=== PATIENT | female | born 1955 | race Caucasian/White ===

== ENCOUNTER 2020-10-26 11:58 | Inpatient (IN) ==
[2020-10-26] MEDS ORDERED: IBUPROFEN 200 MG TAB PO STA (13:28)
[2020-10-26] MEDS ORDERED: oxyCODONE/ACETAMINOPHEN 5mg/325mg TAB PO STA (13:28)
--- NOTE | 2020-10-26 13:40 | Emergency Department Note ---
History of Present Illness General Chief complaint: Back Injury/Pain Stated complaint: NERVE PAIN IN LEG Time Seen by Provider: 10/26/20 13:00 History of Present Illness Maximum Pain Intensity: 10 This patient is a 65-year-old female who presents ambulatory to the emergency department for evaluation of low back pain radiating down her right leg that has gotten progressively worse over the last 6 months. She denies any trauma the pain is sharp, shooting, stabbing in nature. She has tried Tylenol, Aleve, ibuprofen and topical creams with no relief. 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 She denies any numbness or tingling. No reported urinary/bowel incontinence. The patient saw her primary care physician earlier this week. She was prescribed Flexeril, which she has been taking with no relief. Home Medications Medication Instructions Recorded Confirmed Type acetaminophen 650 mg 1,300 mg PO Q12H PRN 10/26/20 10/26/20 History tablet,extended release cyclobenzaprine 10 mg tablet 10 mg PO BID 10/26/20 10/26/20 History ibuprofen 125 mg-acetaminophen 250 1 tab PO TID PRN 10/26/20 10/26/20 History mg tablet (Advil Dual Action) naproxen sodium 220 mg tablet 220 mg PO Q12H PRN 10/26/20 10/26/20 History (Aleve) Allergies Allergy/AdvReac Type Severity Reaction Status Date / Time Penicillins AdvReac Mild Rash Unverified 10/26/20 17:10 Past Med/Surg History Social History Smoking Status: Never smoker Preferred Language: Kinyarwanda Feels Safe at Home: Yes Review of Systems A total of 10 systems reviewed and were otherwise negative Physical Exam Vital Signs Vital Signs - 24 hr 10/26/20 12:10 10/26/20 13:40 10/26/20 15:30 Temperature 36.8 C Temperature Source Temporal Artery Scan Pulse Rate 96 H Pulse Rate [Left Finger] 90 85 Pulse Rhythm [Left Finger] Pulse Strength [Left Finger] Respiratory Rate 16 20 22 Respiratory Effort / Characteristics Respiratory Depth Respiratory Pattern Blood Pressure 103/69 Blood Pressure [Left Arm] 110/70 101/70 Blood Pressure Mean 80 Blood Pressure Mean [Left Arm] 83 80 Blood Pressure Position [Left Arm] Pulse Oximetry 96 98 98 Oxygen Delivery Method Room Air Sepsis Recent Fever Within 48 Hours No Sepsis New/Unexplained Change in Mental Status No Sepsis Action Taken by Nursing No Action Required 10/26/20 17:18 10/26/20 18:13 Temperature Temperature Source Pulse Rate Pulse Rate [Left Finger] 85 73 Pulse Rhythm [Left Finger] Regular Pulse Strength [Left Finger] Normal Respiratory Rate 20 20 Respiratory Effort / Characteristics Non-Labored Spontaneous Respiratory Depth Normal Respiratory Pattern Regular Blood Pressure Blood Pressure [Left Arm] 107/72 133/62 Blood Pressure Mean Blood Pressure Mean [Left Arm] 83 85 Blood Pressure Position [Left Arm] Sitting Sitting Pulse Oximetry 99 98 Oxygen Delivery Method Room Air Sepsis Recent Fever Within 48 Hours Sepsis New/Unexplained Change in Mental Status Sepsis Action Taken by Nursing see below Constitutional WD/WN, vitals as above Eyes EOM intact bilaterally ENMT external ear and nose normal, oropharynx normal Neck trachea midline Respiratory normal respiratory effort, lungs clear to auscultation Cardiovascular RRR, no murmur, no edema Gastrointestinal (Abdomen) Bowel sounds present Musculoskeletal Tenderness palpation over the right SI joint. Bilateral foot drop. Sensation in the lower extremities intact bilaterally. No tenderness over the spinous processes. Skin no rashes, warm and dry Neurologic Alert and oriented x3. No focal motor deficits. Psychiatric Acting appropriately Course Course Patient was seen and examined. She was ordered pain medication. MRI was ordered and reviewed. Upon reevaluation, the patient was still in significant pain. She was ordered morphine 2 mg IV. We discussed her results. She voiced understanding. We discussed disposition options. At this point, she and her did not feel comfortable to be discharged home as she is having a significantly difficult time getting around. Her pain was moderately controlled with the dose of morphine. I discussed the case with the [facility] who kindly agreed to evaluate the patient for likely inpatient management. She remained stable in the emergency department. Consultations Consultation #1: Dr. Balbuena Administered Medications Discontinued Medications Ibuprofen (Ibuprofen 200 Mg Tab) 400 mg PO NOW STA Stop: 10/26/20 13:29 Last Admin: 10/26/20 13:39 Dose: 400 mg Documented by: [id number] Morphine Sulfate (Morphine Sulfate 2 Mg/Ml Carp) 2 mg IV NOW STA Stop: 10/26/20 17:03 Last Admin: 10/26/20 17:15 Dose: 2 mg Documented by: [id number] Oxycodone/Acetaminophen (Oxycodone/Acetaminophen 5mg/325mg Tab) 1 tab PO NOW STA Stop: 10/26/20 13:29 Last Admin: 10/26/20 13:39 Dose: 1 tab Documented by: [id number] Medical Decision Making Medical Records Attestation: I reviewed the patient's medical records. Home Medications Current Medication List: was personally reviewed by me Laboratory Data Result diagrams: 10/26/20 17:16 10/26/20 17:16 Lab Results 10/26/20 10/26/20 10/26/20 Range/Units 17:16 17:16 17:16 WBC 7.07 (4.8-10.8) K/uL RBC 4.33 (4.2-5.4) M/uL Hgb 13.8 (12.0-16.0) g/dL Hct 41.1 (37-47) % MCV 94.9 (80-100) fL MCH 31.9 (25-34) pg MCHC 33.6 (32-36) g/dL RDW Std Deviation 45.2 (36.4-46.3) fL RDW Coeff of Faiza 13.0 (11.5-14.5) % Plt Count 279 (130-400) K/uL MPV 9.4 (7.4-10.4) fL Immature Gran % (Auto) 0.1 % Neut % (Auto) 60.6 % Lymph % (Auto) 29.1 % Braxton % (Auto) 8.2 % Eos % (Auto) 1.4 % Baso % (Auto) 0.6 % Neut # (Auto) 4.28 (1.4-6.5) K/uL Lymph # (Auto) 2.06 (1.2-3.4) K/uL Braxton # (Auto) 0.58 (0.11-0.59) K/uL Eos # (Auto) 0.10 (0-0.5) K/uL Baso # (Auto) 0.04 (0-0.2) K/uL Immature Gran # (Auto) 0.01 (0.00-0.02) K/uL PT 10.5 (9.0-12.0) Seconds INR 1.0 (0.9-1.1) Sodium 141 (136-145) mmol/L Potassium 3.5 (3.5-5.1) mmol/L Chloride 110 H (98-107) mmol/L Carbon Dioxide 22 (21-32) mmol/L Anion Gap 9.0 (3-11) BUN 16 (7-18) mg/dl Creatinine 0.78 (0.6-1.2) mg/dl Est Cr Clr Drug Dosing Not Reportable Est GFR ( Amer) 93.8 ml/min Est GFR (Non-Af Amer) 80.9 ml/min BUN/Creatinine Ratio 21.0 H (10-20) Glucose 68 L (70-99) mg/dl Calcium 9.9 (8.5-10.1) mg/dl Total Bilirubin 0.9 (0.2-1) mg/dl AST 15 (15-37) U/L ALT 23 (12-78) U/L Alkaline Phosphatase 45 (45-117) U/L Total Protein 7.3 (6.4-8.2) gm/dl Albumin 4.5 (3.4-5.0) gm/dl Globulin 2.8 (2.5-4.0) gm/dl Albumin/Globulin Ratio 1.6 (0.9-2) Imaging Data Attestation: I personally reviewed and interpreted this imaging study as follows: Radiologist's Impression: Lumbar Spine MRI 10/26/20 13:28 LUMBAR SPINE MRI HISTORY: severe low back pain down R leg TECHNIQUE: Multiplanar multisequence MRI of the lumbar spine was performed without the use of contrast. COMPARISON: None. FINDINGS: For the purpose of the report the L5-S1 disc space will be located on axial image 23 of 25. Mild motion artifact. Mild dextroscoliosis. Moderate disc space narrowing at L1- L2 and L5-S1. Mild disc space narrowing at L2-L3, L3-L4, and L4-5. Prpt-qy-qkovfisz facet degenerative changes seen throughout the lumbar spine. No fracture or subluxation. The conus terminates at the L1 level. L1-L2: Broad-based posterior disc bulge with a small focal central disc protrusion. No significant central canal narrowing. There is mild to moderate b ilateral neural foraminal narrowing due to the disc bulge and facet hypertrophy. L2-L3: Broad-based posterior disc bulge asymmetric to the left with ligamentum and facet hypertrophy resulting in mild central canal narrowing. There is also moderate right and severe left neural foraminal narrowing L3-L4: Broad-based posterior disc bulge with ligamentum and facet hypertrophy resulting in mild central canal narrowing. No significant neural foraminal narrowing. L4-L5: Broad-based posterior disc bulge with a right paracentral disc extrusion demonstrating inferior subligamentous migration. This measures 13 x 9 x 9 mm and compresses the transiting right L5 nerve root. There is moderate bilateral neural foraminal narrowing due to the disc bulge. There is mild to moderate central canal narrowing. L5-S1: Small broad-based posterior disc bulge without significant central canal narrowing. There is mild to moderate bilateral neural foraminal narrowing due to the disc bulge and facet hypertrophy. IMPRESSION: 1. A 13 x 9 x 9 mm right paracentral disc extrusion at L4-L5 which compresses the transiting right L5 nerve root. 2. Additional degenerative changes as described above within the lumbar spine resulting in central canal and neural foraminal narrowing. 3. No fracture or subluxation. 4. Mild dextroscoliosis. ACT 112: Negative or not required by law. Electronically signed by: Wild Anderson M.D. 10/26/2020 3:44 PM MDM Narrative Differential diagnosis: Radiculopathy, no sciatica, spine fracture, ligamentous injury, subluxation, spondylolisthesis, spondylosis, herniated disc, contusion, muscle spasm, infectious etiology, among others This patient is a 65-year-old female that presents emergency department complaining of severe back pain down the right leg. She has been dealing with this for quite some time. On exam, her vital signs are stable. I do not suspect an infectious etiology. The patient has bilateral foot drop but at baseline secondary to CMT. She was neurologically at her baseline. Due to the amount of discomfort and symptoms, an MRI was ordered. This shows a severe disc bulge at L4-L5, which is consistent with her path of pain. As I did not feel comfortable sending the patient home due to her baseline difficulties ambulating, it was felt that hospitalist consultation was warranted. She also did not have any relief with p.o. pain medication. They agreed to evaluate the patient for likely inpatient management. Impression & Plan Lumbar radiculopathy, Bulging disc Discharge Plan Visit Data Chief Complaint: Back Injury/Pain Stated Complaint: NERVE PAIN IN LEG ED Provider: Cony Ivory ED Midlevel Provider: Obdulia Leach Discharge Problem: Lumbar radiculopathy, Bulging disc Patient Disposition: Being Evaluated by Hospitalist Forms Stand Alone Forms: [facility] Prescriptions Prescriptions: No Action cyclobenzaprine 10 mg tablet 10 mg PO BID RF: 0 acetaminophen [Tylenol Extended Release] 650 mg Tablet Extended Release 1,300 mg PO Q12H PRN (Reason: Pain) RF: 0 naproxen sodium [Aleve] 220 mg Tablet 220 mg PO Q12H PRN (Reason: Pain) RF: 0 Advil Dual Action 125-250 mg Tablet 1 tab PO TID PRN (Reason: Pain) RF: 0 Referrals Referrals: Jonathan Majano MD [Primary Care Provider] -
--- NOTE | 2020-10-26 15:46 | Magnetic Resonance Report ---
LUMBAR SPINE MRI HISTORY: severe low back pain down R leg TECHNIQUE: Multiplanar multisequence MRI of the lumbar spine was performed without the use of contras t. COMPARISON: None. FINDINGS: For the purpose of the report the L5-S1 disc space will be located on axial image 23 of 25. Mild motion artifact. Mild dextroscoliosis. Moderate disc space narrowing at L1-L2 and L5-S1. Mild di sc space narrowing at L2-L3, L3-L4, and L4-5. Mohi-tz-jpzocfpk facet degenerative changes seen throug hout the lumbar spine. No fracture or subluxation. The conus terminates at the L1 level. L1-L2: Broad-based posterior disc bulge with a small focal central disc protrusion. No significant ce ntral canal narrowing. There is mild to moderate bilateral neural foraminal narrowing due to the disc bulge and facet hypertrophy. L2-L3: Broad-based posterior disc bulge asymmetric to the left with ligamentum and facet hypertrophy resulting in mild central canal narrowing. There is also moderate right and severe left neural forami nal narrowing L3-L4: Broad-based posterior disc bulge with ligamentum and facet hypertrophy resulting in mild centr al canal narrowing. No significant neural foraminal narrowing. L4-L5: Broad-based posterior disc bulge with a right paracentral disc extrusion demonstrating inferio r subligamentous migration. This measures 13 x 9 x 9 mm and compresses the transiting right L5 nerve root. There is moderate bilateral neural foraminal narrowing due to the disc bulge. There is mild to moderate central canal narrowing. L5-S1: Small broad-based posterior disc bulge without significant central canal narrowing. There is m ild to moderate bilateral neural foraminal narrowing due to the disc bulge and facet hypertrophy. IMPRESSION: 1. A 13 x 9 x 9 mm right paracentral disc extrusion at L4-L5 which compresses the transiting right L5 nerve root. 2. Additional degenerative changes as described above within the lumbar spine resulting in central ca nal and neural foraminal narrowing. 3. No fracture or subluxation. 4. Mild dextroscoliosis. ACT 112: Negative or not required by law. Electronically signed by: Wild Anderson M.D. 10/26/2020 3:44 PM
[2020-10-26] MEDS ORDERED: MoRPHine SULFATE 2 MG/ML CARP IV STA (17:02)
[2020-10-26 17:27] LABS: Basophils # (auto) 0.04 K/uL (0-0.2); Basophils % (auto) 0.6 %; Eosinophils % (auto) 1.4 %; Hematocrit (blood only) 41.1 % (37-47); Hemoglobin 13.8 g/dL (12.0-16.0); Immature Granulocytes # (auto) 0.01 K/uL (0.00-0.02); Immature Granulocytes % (auto) 0.1 %; Lymphocytes # (auto) 2.06 K/uL (1.2-3.4); Lymphocytes % (auto) 29.1 %; Mean Corpuscular Hemoglobin 31.9 pg (25-34); Mean Corpuscular Hgb Conc 33.6 g/dL (32-36); Mean Corpuscular Volume 94.9 fL (80-100); Mean Platelet Volume 9.4 fL (7.4-10.4); Monocytes # (auto) 0.58 K/uL (0.11-0.59); Monocytes % (auto) 8.2 %; Neutrophils # (auto) 4.28 K/uL (1.4-6.5); Neutrophils % (auto) 60.6 %; Platelet Count 279 K/uL (130-400); RDW Standard Deviation 45.2 fL (36.4-46.3); Red Blood Count 4.33 M/uL (4.2-5.4); White Blood Count 7.07 K/uL (4.8-10.8)
[2020-10-26 17:44] LABS: Alanine Aminotransferase 23 U/L (12-78); Albumin Level 4.5 gm/dl (3.4-5.0); Aspartate Aminotransferase 15 U/L (15-37); Blood Urea Nitrogen 16 mg/dl (7-18); Calcium 9.9 mg/dl (8.5-10.1); Carbon Dioxide 22 mmol/L (21-32); Chloride 110 mmol/L (98-107); Est GFR (African American) 93.8 ml/min; Est GFR (Non-African American) 80.9 ml/min; Glucose 68 mg/dl (70-99); Potassium 3.5 mmol/L (3.5-5.1); Sodium 141 mmol/L (136-145)
[2020-10-26 17:47] LABS: Albumin Globulin Ratio 1.6 (0.9-2); Alkaline Phosphatase 45 U/L (45-117); Bilirubin,Total 0.9 mg/dl (0.2-1); Globulin 2.8 gm/dl (2.5-4.0); Total Protein 7.3 gm/dl (6.4-8.2)
[2020-10-26 17:59] LABS: Prothrombin Time 10.5 Seconds (9.0-12.0)
[2020-10-26] MEDS ORDERED: ACETAMINOPHEN 325 MG TAB PO PRN (20:11)
[2020-10-26] MEDS ORDERED: IBUPROFEN 200 MG TAB PO PRN (20:11)
[2020-10-26] MEDS: LIDOCAINE 5% 1 PATCH TD SCH (20:41)
--- NOTE | 2020-10-26 20:51 | History & Physical Report ---
Date of Service October 26, 2020 Assessment & Plan (1) Lumbar radiculopathy: (2) Charcot Nichelle Tooth muscular atrophy: Plan: Please refer to Dr. Stewart's addendum for physical exam. History of Present Illness Chief Complaint: Right hip pain Primary Care Provider: Jonathan Majano MD 65-year-old female with PMH Ymkswnl-Ynbld-[id number] and other problems listed below who presents the ED for evaluation of right hip pain. Patient reports right hip pain initially started about a year and a half ago. Reports pain radiates down the back of the right leg. Pain has been progressively getting worse. Initially patient was able to obtain pain control with Tylenol, Motrin, Aleve, or pain relief patches. Currently bbyt-bwf-ybmsbgj therapies are not improving her pain. She has been seen PT for the past couple of weeks with minimal improvement. Patient then presented to the ED for further evaluation. Patient has chronic bilateral foot drop from underlying Mnndwwk-Agpnv-Hrluz. Denies right leg weakness. Also has chronic neuropathy which is unchanged from baseline. Patient denies loss of bowel or bladder control. Reports she otherwise has been feeling well recently. No other recent illnesses, fevers, chills. She denies chest pain shortness of breath. No lightheadedness, dizziness, diaphoresis, syncopal events. Denies abdominal pain, nausea, vomiting, diarrhea. No new urinary symptoms. In the ED, lumbar spine MRI shows a 13 x 9 x 9 mm right paracentral disc extrusion at L4-L5 which compresses the transiting right L5 nerve root. Patient received ibuprofen, IV morphine 2 mg, Percocet. She continues to have intractable pain. Allergies Allergy/AdvReac Type Severity Reaction Status Date / Time Penicillins AdvReac Mild Rash Unverified 10/26/20 17:10 Home Medications Medication Instructions Recorded Confirmed Type acetaminophen 650 mg 1,300 mg PO Q12H PRN 10/26/20 10/26/20 History tablet,extended release cyclobenzaprine 10 mg tablet 10 mg PO BID 10/26/20 10/26/20 History ibuprofen 125 mg-acetaminophen 250 1 tab PO TID PRN 10/26/20 10/26/20 History mg tablet (Advil Dual Action) naproxen sodium 220 mg tablet 220 mg PO Q12H PRN 10/26/20 10/26/20 History ([place]) Past Med/Surg History Medical History Charcot Nichelle Tooth muscular atrophy Surgical History History of History of tonsillectomy Family History Father Charcot Nichelle Tooth muscular atrophy Social History Smoking Status: Former smoker Hx Alcohol Use: No Preferred Language: Wolof Feels Safe at Home: Yes Review of Systems Review of Systems: ROS per HPI, all other systems reviewed and negative Physical Exam Constitutional: WD/WN, vitals as above Eyes: PERRL, conjunctivae normal, anicteric sclerae ENMT: external ear and nose normal, oropharynx normal Respiratory: normal respiratory effort, lungs clear to auscultation Cardiovascular: Rate/Rhythm: regular rate and regular rhythm Vessels: normal peripheral pulses Extremities: no edema Gastrointestinal (Abdomen): normal bowel sounds, soft, nontender, no hepatosplenomegaly Musculoskeletal: no cyanosis or clubbing, extremities motor strength 5/5 Extremities: + muscle atrophy (BL calf msucles) BL foot drop Skin: no rashes, warm and dry Neurologic: PERRL, EOMI, accommodation nl, no face palsy, no dysarthria Psychiatric: A+Ox3, euthymic affect Results & Data Results & Data ([facility]) Vital Signs (Past 12 Hours) Vital Signs Temp Pulse Pulse Resp BP BP Pulse Ox 10/26/20 18:13 73 20 133/62 98 10/26/20 17:18 85 20 107/72 99 10/26/20 15:30 85 22 101/70 98 10/26/20 13:40 90 20 110/70 98 10/26/20 12:10 36.8 C 96 H 16 103/69 96 Laboratory Results Short CBC 10/26/20 Range/Units 17:16 WBC 7.07 (4.8-10.8) K/uL Hgb 13.8 (12.0-16.0) g/dL Hct 41.1 (37-47) % Plt Count 279 (130-400) K/uL BMP 10/26/20 17:16 Sodium 141 Potassium 3.5 Chloride 110 H Carbon Dioxide 22 BUN 16 Creatinine 0.78 Glucose 68 L Calcium 9.9 Liver Function 10/26/20 Range/Units 17:16 Total Bilirubin 0.9 (0.2-1) mg/dl AST 15 (15-37) U/L ALT 23 (12-78) U/L Alkaline Phosphatase 45 (45-117) U/L Albumin 4.5 (3.4-5.0) gm/dl Diagnostic Findings Lumbar Spine MRI 10/26/20 13:28 LUMBAR SPINE MRI HISTORY: severe low back pain down R leg TECHNIQUE: Multiplanar multisequence MRI of the lumbar spine was performed without the use of contrast. COMPARISON: None. FINDINGS: For the purpose of the report the L5-S1 disc space will be located on axial image of . Mild motion artifact. Mild dextroscoliosis. Moderate disc space narrowing at L1- L2 and L5-S1. Mild disc space narrowing at L2-L3, L3-L4, and L4-5. Exvj-cu-nrpuqxmk facet degenerative changes seen throughout the lumbar spine. No fracture or subluxation. The conus terminates at the L1 level. L1-L2: Broad-based posterior disc bulge with a small focal central disc protrusion. No significant central canal narrowing. There is mild to moderate bilateral neural foraminal narrowing due to the disc bulge and facet hypertrophy. L2-L3: Broad-based posterior disc bulge asymmetric to the left with ligamentum and facet hypertrophy resulting in mild central canal narrowing. There is also moderate right and severe left neural foraminal narrowing L3-L4: Broad-based posterior disc bulge with ligamentum and facet hypertrophy resulting in mild central canal narrowing. No significant neural foraminal narrowing. L4-L5: Broad-based posterior disc bulge with a right paracentral disc extrusion demonstrating inferior subligamentous migration. This measures 13 x 9 x 9 mm and compresses the transiting right L5 nerve root. There is moderate bilateral neural foraminal narrowing due to the disc bulge. There is mild to moderate central canal narrowing. L5-S1: Small broad-based posterior disc bulge without significant central canal narrowing. There is mild to moderate bilateral neural foraminal narrowing due to the disc bulge and facet hypertrophy. IMPRESSION: 1. A 13 x 9 x 9 mm right paracentral disc extrusion at L4-L5 which compresses the transiting right L5 nerve root. 2. Additional degenerative changes as described above within the lumbar spine resulting in central canal and neural foraminal narrowing. 3. No fracture or subluxation. 4. Mild dextroscoliosis. ACT 112: Negative or not required by law. Electronically signed by: Wild Anderson M.D. 10/26/2020 3:44 PM Supervising Physician Co-Signing Physician Notes IM ATTENDING : Patient seen and examined. History obtained from patient and records. Preceding documentation by DOLORES Stein reviewed. FINAL ASSESSMENT AND PLAN as follows : Worsening back pain with radiculopathy symptoms Protracted 6-month history Sciatica symptoms possibly from gait instability from fractures of ankle foot orthoses for CMT as per outpatient Neurology note Failed medical management (including steroid course as per patient account) and PT Past tobacco abuse OBS GMF Lidoderm patch trial, analgesia Orthopedic spine consult Re: Lumbar radiculopathy of 6 months duration PT eval DVT prophylaxis SCDs Re: Possible procedural intervention Full code Text document was generated using [employer] voice recognition software. It may contain grammatical or spelling errors. Kindly contact undersigned for clarification of any documentation item in question.
[2020-10-26 21:12] LABS: Appearance Urine Clear (Clear); Bilirubin Urine Negative (Negative); Blood Urine Negative (Negative); Color Urine Yellow; Glucose Urine UA Negative (Negative); Ketones Urine 3+ (Negative); Leukocyte Esterase Urine Negative (Negative); Nitrite Urine Negative (Negative); Protein Urine Negative (Negative); Specific Gravity Urine 1.023 (1.000-1.030); Urobilinogen Urine Negative (Negative); pH Urine 5.5 (4.5-7.5)
[2020-10-26] MEDS ORDERED: LACTATED RINGER'S 1,000 ML IV ONE (21:52)
[2020-10-26] MEDS: KETOROLAC TROMETHAMINE 15 MG/ML VIAL IV PRN (22:01)
[2020-10-26 22:29] LABS: Magnesium 2.1 mg/dl (1.8-2.4)
[2020-10-27] MEDS ORDERED: PROMETHAZINE HCL 12.5 MG in SODIUM CHLORIDE 0.9% 50 ML IV PRN (00:53)
[2020-10-27] MEDS: KETOROLAC TROMETHAMINE 15 MG/ML VIAL IV PRN ×3 (07:57→20:16)
--- NOTE | 2020-10-27 11:08 | Orthopedic Consultation ---
Date of Consultation October 27, 2020 Assessment & Plan (1) Lumbar radiculopathy: MRI lumbar spine performed yesterday at [facility] does demonstrate evidence of multilevel degenerative disc disease with disc protrusions. She does have acute discrimination at L4-L5 on the right with caudal migration and significant displacement traversing L5 nerve root. This is consistent with her presentation and pain patterns. I have discussed with her treatment options. At this point she would be interested in surgery. Would require lumbar laminectomy L4-L5 on the right with excision of herniated free fragment. Risk benefits pros cons and alternatives were outlined in detail. Ri sk include but not limited to anesthesia blindness stroke paralysis nerve damage blood loss requiring transfusion infection requiring reoperation. At this time she would like pursue surgery. We will plan for surgery Thursday. History of Present Illness Reason for Consultation: Back and right leg pain Attending Physician: Randolph Adam MD History of Present Illness This is a very pleasant 65-year-old female who presents to the emergency room last night with marked worsening of her pain. She describes pain in the right buttock posterior lateral thigh extending below the knee and into the dorsum of her foot. She has had the symptoms for several months. She is undergone a course of oral steroids as well as 3 weeks of physical therapy that is failed to provide any significant relief. She states she had no recurrent relief from the steroids. Symptoms have not gotten the point that she is unable to ambulate without a cane. She states the pain is more severe and considerably limiting to her quality of life. Left lower extremity is asymptomatic. Allergies Allergy/AdvReac Type Severity Reaction Status Date / Time Penicillins AdvReac Mild Rash Unverified 10/26/20 17:10 Home Medications Medication Instructions Recorded Confirmed Type acetaminophen 650 mg 1,300 mg PO Q12H PRN 10/26/20 10/26/20 History tablet,extended release cyclobenzaprine 10 mg tablet 10 mg PO BID 10/26/20 10/26/20 History ibuprofen 125 mg-acetaminophen 250 1 tab PO TID PRN 10/26/20 10/26/20 History mg tablet (Advil Dual Action) naproxen sodium 220 mg tablet 220 mg PO Q12H PRN 10/26/20 10/26/20 History ([place]ve) Patient History Medical History Charcot Nichelle Tooth muscular atrophy Surgical History History of History of tonsillectomy Family History Father Charcot Nichelle Tooth muscular atrophy Social History Smoking Status: Former smoker Hx Alcohol Use: No Hx Substance Use: No Preferred Language: Barbadian Beliefs That Will Affect Care: None Current Living Situation: Spouse Other Information That Helps Us Care for You: No Feels Safe at Home: Yes Safety Concerns: Feels Safe At This Time Assistive Devices: Cane Physical Exam Physical Exam: On exam she is in bed. She is able to sit up. She exhibits marked tension signs with straight leg raising on the right negative on the left. Sensory appears to be symmetric and intact. She does have Exyckfy-Wjwti-Ylvzf and some weakness in her bilateral feet she states this is been present for years. She does exhibit weakness to bilateral dorsiflexion extensor pollicis longus with a 5/5 bilateral plantar flexion and quadriceps. Deep tendon reflexes diminished. Results & Data ([facility]) Vital Signs (Past 12 Hours) Vital Signs Temp Pulse Pulse Resp BP BP Pulse Ox 10/27/20 07:00 37.0 C 71 18 127/76 94 10/27/20 00:53 36.8 C 92 H 18 123/69 95 10/27/20 00:30 36.8 C 92 H 18 123/69 95 10/27/20 00:17 89 18 106/49 L 95
[2020-10-27] MEDS: oxyCODONE HCL IR 5 MG TAB (IMMEDIATE RELEASE) PO PRN (17:08)
--- NOTE | 2020-10-27 18:51 | Hospitalist Progress Note ---
Date of Service October 27, 2020 Assessment & Plan (1) Lumbar radiculopathy: (2) Hip pain, right: Plan: Present on admission with worsening right hip pain MRI showed a 13 x 9 x 9 mm right paracentral disc extrusion at L4-L5 which compresses the transiting right L5 nerve root. ortho on board Plan for lumbar laminectomy L4-L5 on the right with excision of herniated free fragment. Continue pain control Continue monitor closely Charcot Nichelle Tooth muscular atrophy Continue pain control DVT px on SCD Full code Admission and Anticipated Discharge Date Admission Date: October 26, 2020 Subjective Pt was seen and examined for follow up of right hip pain. Sitting in bed with no acute distress. said that pain seems to improve with Toradol Pt said that she would rather proceed with the surgery because she has been having problem for more than year and nothing provided any relief Denies any chest pain, palpitation, dizziness and SOB Physical Exam Physical Exam: General- No acute distress Head- atraumatic Eyes- PERRL, EOMI, ENT- oropharynx clear Neck- supple, no JVD Lungs- clear to auscultation Heart- regular rhythm; no murmur Abdomen- normal bowel sounds, soft, nontender Extremities- no calf tenderness, right sided hip tenderness Neuro- alert, oriented x 3; PERRL, EOMI; no facial palsy; no dysarthria Skin- warm & dry Results & Data Results & Data ([facility]) Vital Signs (Past 12 Hours) Vital Signs Temp Pulse Resp BP Pulse Ox 10/27/20 15:00 37.2 C 77 20 120/74 93 10/27/20 07:00 37.0 C 71 18 127/76 94
[2020-10-27] MEDS: LIDOCAINE 5% 1 PATCH TD SCH (20:17)
[2020-10-28] MEDS: KETOROLAC TROMETHAMINE 15 MG/ML VIAL IV PRN ×3 (02:22→18:24)
[2020-10-28] MEDS: HYDROmorphone INJ 0.5 MG/0.5 ML SYR IV PRN (09:09)
--- NOTE | 2020-10-28 11:03 | Orthopedic Progress Note ---
Date of Service October 28, 2020 Assessment & Plan (1) Lumbar radiculopathy: Plan: At this time will make her n.p.o. after midnight plan for lumbar laminotomy L4- L5 on the right. All questions were addressed. Admission and Anticipated Discharge Date Admission Date: October 26, 2020 Subjective This is a patient continues to have severe right radiculopathy. She is now trying IV Dilaudid and obtaining very little benefit. Physical Exam Physical Exam: Patient is in obvious distress. Continued tension signs straight leg raise on the right. Negative on the left. Still diminished strength bilateral extremities. Results & Data ([facility]) Vital Signs (Past 12 Hours) Vital Signs Temp Pulse Resp BP Pulse Ox 10/28/20 07:30 36.9 C 74 18 123/69 96
[2020-10-28] MEDS: oxyCODONE HCL IR 5 MG TAB (IMMEDIATE RELEASE) PO PRN ×3 (11:07→23:08)
[2020-10-28] MEDS ORDERED: HYDROmorphone INJ 1 MG/ML SYRINGE IV STA (12:44)
[2020-10-28] MEDS ORDERED: dexAMETHasone**PF** 10 MG/ML VIAL IV ONE (13:00)
[2020-10-28] MEDS ORDERED: dexAMETHasone 8 MG in SYRINGE 0 ML IV ONE (13:45)
--- NOTE | 2020-10-28 17:03 | Hospitalist Progress Note ---
Date of Service October 28, 2020 Assessment & Plan (1) Lumbar radiculopathy: (2) Hip pain, right: Plan: Present on admission with worsening right hip pain MRI showed a 13 x 9 x 9 mm right paracentral disc extrusion at L4-L5 which compresses the transiting right L5 nerve root. ortho on board Plan for lumbar laminectomy L4-L5 on the right with excision of herniated free fragment. Continue pain control with diluadid and toradol Will make NPO after midnight Continue monitor closely Charcot Nichelle Tooth muscular atrophy Continue pain control DVT px on SCD Full code Admission and Anticipated Discharge Date Admission Date: October 26, 2020 Subjective Pt was seen and examined for right hip pain Lying in bed crying with severe pain She said that she moves her leg the wrong way she said that the pain med only help for a short time denies any chest pain, palpitation, dizziness and SOB Physical Exam Physical Exam: General- No acute distress Head- atraumatic Eyes- PERRL, EOMI, ENT- oropharynx clear Neck- supple, no JVD Lungs- clear to auscultation Heart- regular rhythm; no murmur Abdomen- normal bowel sounds, soft, nontender Extremities- no calf tenderness, right sided hip tenderness Neuro- alert, oriented x 3; PERRL, EOMI; no facial palsy; no dysarthria Skin- warm & dry Results & Data Results & Data ([facility]) Vital Signs (Past 12 Hours) Vital Signs Temp Pulse Resp BP Pulse Ox 10/28/20 16:31 36.9 C 69 16 121/77 99 10/28/20 07:30 36.9 C 74 18 123/69 96
[2020-10-28] MEDS: LIDOCAINE 5% 1 PATCH TD SCH (20:23)
[2020-10-29] MEDS: KETOROLAC TROMETHAMINE 15 MG/ML VIAL IV PRN ×2 (05:36→11:26)
[2020-10-29] MEDS: HYDROmorphone INJ 0.5 MG/0.5 ML SYR IV PRN ×2 (07:04→11:56)
--- NOTE | 2020-10-29 10:05 | History & Physical Bridge Note ---
Date of Service October 29, 2020 History & Physical Bridge Note I have examined the patient, reviewed the History & Physical and in the interval since the performance of the History & Physical I have noted the following changes of clinical significance: no changes noted Patient has persistent right sided radiculopathy. Surgically we are planning to move forward with lumbar laminotomy L4-L5 on the right
[2020-10-29] MEDS: oxyCODONE HCL IR 5 MG TAB (IMMEDIATE RELEASE) PO PRN (10:30)
--- NOTE | 2020-10-29 12:41 | Electrocardiogram Report ---
Test Reason : Blood Pressure : / mmHG Vent. Rate : 092 BPM Atrial Rate : 092 BPM P-R Int : 132 ms QRS Dur : 084 ms QT Int : 366 ms P-R-T Axes : 086 050 054 degrees QTc Int : 452 ms Normal sinus rhythm Nonspecific ST abnormality Abnormal ECG No previous ECGs available Confirmed by Denis Becker ([id number]) on 10/29/2020 12:41:35 PM Referred By: REFERRED SELF Confirmed By:Denis Becker
[2020-10-29] MEDS ORDERED: EPINEPHrine INJ 1 MG/ML AMP ONE ×2 (14:42→15:31)
[2020-10-29] MEDS ORDERED: BUPIVACAINE 0.5 % 5 MG/1 ML MPF 30ML VIAL ONE ×2 (14:43→15:31)
[2020-10-29] MEDS ORDERED: fentaNYL citrate 100 MCG/2 ML VIAL ONE ×2 (14:52→15:57)
[2020-10-29] MEDS ORDERED: MIDAZOLAM HCL 1 MG/ML 2ML VIAL ONE (14:52)
[2020-10-29] MEDS ORDERED: GLYCOPYRROLATE 0.2 MG/ML VIAL ONE ×2 (14:52→17:35)
[2020-10-29] MEDS ORDERED: NEOSTIGMINE METHYLSULFATE 1 MG/ML 10ML VIAL ONE ×2 (14:52→17:35)
[2020-10-29] MEDS ORDERED: ceFAZolin 1000MG 1,000 MG/7.5 ML SYR IV ONE ×2 (15:05→16:31)
[2020-10-29] MEDS ORDERED: ONDANSETRON INJ 2 MG/ML 2 ML VIAL IV PRN ×2 (15:09→18:11)
[2020-10-29] MEDS ORDERED: ePHEDrine sulfate 50 MG/ML AMP IV PRN (15:09)
[2020-10-29] MEDS ORDERED: HYDROmorphone INJ 2 MG/ML SYR/VIAL IV PRN (15:09)
[2020-10-29] MEDS ORDERED: fentaNYL citrate 100 MCG/2 ML VIAL IV PRN (15:09)
[2020-10-29] MEDS ORDERED: ATROPINE SULFATE 0.1 MG/ML 10ML SYR IV PRN (15:09)
--- NOTE | 2020-10-29 15:09 | Anesthesiology Consultation ---
Date of Service October 29, 2020 Assessment & Plan ASA ASA3 Proposed Anesthesia Anesthesia Type: General Risk / Benefits Reviewed With: PT / POA / Parent / Guardian, Accepts Plan and Informed Consent Obtained History Surgery Operation Date: 10/29/20 08:50 Proposed Procedures p L4-5 Right Laminectomy - Ho Caldera DO Height/Weight Height: 5 ft 4 in Weight: 52.3 kg Allergies Allergy/AdvReac Type Severity Reaction Status Date / Time Penicillins AdvReac Mild Rash Unverified 10/26/20 17:10 Medications Home Medications Medication Instructions Recorded Confirmed Last Taken acetaminophen 650 mg 1,300 mg PO Q12H PRN 10/26/20 10/26/20 10/26/20 tablet,extended release cyclobenzaprine 10 mg tablet 10 mg PO BID 10/26/20 10/26/20 10/26/20 ibuprofen 125 mg-acetaminophen 250 1 tab PO TID PRN 10/26/20 10/26/20 Unknown mg tablet (Advil Dual Action) naproxen sodium 220 mg tablet 220 mg PO Q12H PRN 10/26/20 10/26/20 10/26/20 (Aleve) Active Medications Generic Name Dose Route Start Last Admin Trade Name Freq PRN Reason Stop Dose Admin Acetaminophen 650 mg 10/26/20 20:11 10/28/20 20:22 Acetaminophen 325 Mg Tab PO 11/25/20 20:10 650 mg Q6H PRN Administration Fever/pain Hydromorphone HCl 0.5 mg 10/28/20 08:51 10/29/20 11:56 Hydromorphone Inj 0.5 Mg/0.5 Ml Syr IV 11/11/20 08:50 0.5 mg Q4H PRN Administration Pain Ketorolac Tromethamine 15 mg 10/26/20 20:11 10/29/20 11:26 Ketorolac Tromethamine 15 Mg/Ml Vial IV 10/31/20 20:10 15 mg Q6H PRN Administration Pain Lidocaine 1 patch 10/26/20 20:00 10/28/20 20:23 Lidocaine 5% 1 Patch TD 11/25/20 19:59 1 patch HS DEE Administration Miscellaneous 1 ea 10/27/20 09:00 10/29/20 09:20 Remove Lidoderm Patch N/A 11/26/20 08:59 1 ea QAM DEE Administration Oxycodone HCl 5 - 10 mg 10/26/20 20:11 10/29/20 10:30 Oxycodone Hcl Ir 5 Mg Tab (Immediate Release) PO 11/09/20 20:10 10 mg QID PRN Administration Pain NPO Date Last Intake of Fluids: 10/29/20 Time Last Intake of Fluids: 10:30 Last Intake of Fluids Comment: per patient sips this am with meds Date Last Intake of Solids: 10/28/20 Time Last Intake of Solids: 17:30 Last Intake of Solids Comment: dinner Past Medical History Medical History Charcot Nichelle Tooth muscular atrophy Exercise / Class Metabolic Activity II 4-5 Yardwork/Stairs/Walk up hill Past Family History Family History Father Charcot Nichelle Tooth muscular atrophy Past Surgical History Surgical History History of History of tonsillectomy Past Anesthesia History No Hx of Anesthesia Complications and No Family Hx of Anesthesia Complications History of PONV No Hx of PONV and No Hx of Motion Sickness Social History Smoking Status: Former smoker Hx Alcohol Use: No Hx Substance Use: No Review of Systems denies fever/cough/ colds/ chest pain/ SOB/ ALMA denies ALMA Physical Exam Vital Signs Last Vital Signs Temp 36.7 C 10/29/20 14:24 Pulse 66 10/29/20 14:24 Resp 20 10/29/20 14:24 BP 125/66 10/29/20 14:24 Pulse Ox 99 10/29/20 14:24 ENMT Mouth: no TMJ abnormality and no dentition abnormality Thyromental Distance: > or= 3.5 Finger Breadths Mallampati Class: II Neck neck extension not limited Respiratory normal respiratory effort; no respiratory distress Auscultation: lungs clear to auscultation bilaterally Cardiovascular Rate/Rhythm: regular rate and regular rhythm Neurologic moves all extremities Psychiatric Orientation: alert and oriented x 3 Testing Laboratory Results 10/26/20 17:16 10/26/20 17:16 PT 10.5 Seconds (9.0-12.0) 10/26/20 17:16 INR 1.0 (0.9-1.1) 10/26/20 17:16 Urine Color Yellow 10/26/20 20:30 Urine Appearance Clear (Clear) 10/26/20 20:30 Urine pH 5.5 (4.5-7.5) 10/26/20 20:30 Ur Specific [place] 1.023 (1.000-1.030) 10/26/20 20:30 Urine Protein Negative (Negative) 10/26/20 20:30 Urine Glucose (UA) Negative (Negative) 10/26/20 20:30 Urine Ketones 3+ (Negative) H 10/26/20 20:30 Urine Nitrite Negative (Negative) 10/26/20 20:30 Ur Leukocyte Esterase Negative (Negative) 10/26/20 20:30
--- NOTE | 2020-10-29 17:10 | Operative Report ---
Post Operative Report Pre & Post Diagnosis Operation Date: 10/29/20 08:50 Pre-Op Diagnosis: L4-5 disc herniation with radiculopathy Post-Op Diagnosis: Same I identified the patient and participated in the time-out.: Yes Procedure Operation Date: 10/29/20 08:50 Actual Procedures Laminotomy L4-5 on the right with excision of herniated free fragment Surgeon Ho Caldera, DO Jailer/Training Officer None Estimated Blood Loss 25 Findings Consistent with Post-Op Diagnosis Specimens None Indications This is a 65-year-old female presents with severe radiculopathy expressive nature uncontrolled with physical therapy steroids and IV narcotics. Subsequently she is here for urgent laminotomy discectomy. Description of Procedure Patient was met with identified informed consent obtained. Patient was then taken to the operative suite underwent ablation placed in a prone position on a Torres table atop the Reji frame. All bony prominences well-padded eyes inspected to ensure no external pressure placed upon the bed at this point the lumbar spine was prepped and draped no sterile fashion. The assistance of fluoroscopy identified the L4-L5 disc base. A small incision was then placed in the midline overlying this region. Sharp dissection with the assistance of Bovie cautery performed down to expose the interlaminar space at L4-L5 on the right. Several 10 retractors placed. Then performed a small laminotomy excising the medial portion of the of the facet and part of the superior lamina of L5 to expose a severely compressed traversing L5 nerve root. Was mobilized medially and several loose fragments of disc material identified and removed. The area was explored several times to ensure all fragments were addressed root was very mobile. Incision was then copiously irrigated and closed with subcutaneous Vicryl and 4 Monocryl for final closure. Steri-Strip Steri-Strips placed. Patient will continue to PACU stable condition. I attest to the content of the Intraoperative Record and any orders documented therein. Any exceptions are noted below.
[2020-10-29] MEDS ORDERED: SUGAMMADEX SODIUM 200 MG/2 ML VIAL IV ONE (17:16)
--- NOTE | 2020-10-29 17:18 | Hospitalist Progress Note ---
Date of Service October 29, 2020 Assessment & Plan (1) Lumbar radiculopathy: (2) Hip pain, right: Plan: Present on admission with worsening right hip pain MRI showed a 13 x 9 x 9 mm right paracentral disc extrusion at L4-L5 which compresses the transiting right L5 nerve root. ortho on board S/P lumbar laminectomy L4-L5 on the right with excision of herniated free fragment by Dr. Caldera Continue pain control with diluadid and toradol Continue incentive spirometry PT/OT as per ortho Continue monitor closely Charcot Nichelle Tooth muscular atrophy Continue pain control DVT px on SCD Full code Admission and Anticipated Discharge Date Admission Date: October 29, 2020 Subjective Pt was seen and examined for right hip pain Lying in bed continue to have pain in the back She said that she moves her leg the wrong way Plan to go to the OR for laminectomy by Dr. Caldera today denies any chest pain, palpitation, dizziness and SOB Physical Exam Physical Exam: General- No acute distress Head- atraumatic Eyes- PERRL, EOMI, ENT- oropharynx clear Neck- supple, no JVD Lungs- clear to auscultation Heart- regular rhythm; no murmur Abdomen- normal bowel sounds, soft, nontender Extremities- no calf tenderness, right sided hip tenderness Neuro- alert, oriented x 3; PERRL, EOMI; no facial palsy; no dysarthria Skin- warm & dry Results & Data Results & Data ([facility]) Vital Signs (Past 12 Hours) Vital Signs Temp Pulse Resp BP BP Pulse Ox 10/29/20 14:24 36.7 C 66 20 125/66 99 10/29/20 06:58 36.3 C L 108 H 22 115/68 99
[2020-10-29] MEDS ORDERED: PROPOFOL IV EMULSION 10 MG/ML 20 ML VIAL IV ONE (17:35)
[2020-10-29] MEDS ORDERED: LIDOCAINE 2% 2 ML VIAL/AMP(20MG/ML) INFIL ONE (17:35)
[2020-10-29] MEDS ORDERED: DEXAMETHASONE SOD INJ 4 MG/ML VIAL ONE (17:35)
--- NOTE | 2020-10-29 18:06 | Anesthesiology Progress Note ---
Date of Service October 29, 2020 Anesthesia Post Procedure Vital Signs Vital Signs: Temp Pulse Pulse Resp BP BP Pulse Ox 10/29/20 18:00 36.4 C L 75 13 104/43 L 98 10/29/20 17:50 62 13 101/51 L 99 10/29/20 17:40 63 12 88/48 L 100 10/29/20 17:30 67 11 L 107/46 L 100 10/29/20 17:23 36.3 C L 80 16 124/51 L 100 10/29/20 14:24 36.7 C 66 20 125/66 99 10/29/20 06:58 36.3 C L 108 H 22 115/68 99 10/28/20 23:04 36.5 C 68 12 119/68 94 Pain Intensity Back: Pain Intensity: 10 Transfer of Care Handoff Completed per policy Notes Mental Status: alert / awake / arousable and participated in evaluation Patient Amnestic to Procedure: Yes Nausea / Vomiting: adequately controlled Pain: adequately controlled Airway Patency, RR, SpO2: stable & adequate BP & HR: stable & adequate Hydration State: stable & adequate Anesthetic Complications: no major complications apparent and Pt Satisfied with anesthetic care
[2020-10-29] MEDS ORDERED: ACETAMINOPHEN 1,000 MG/100 ML VIAL IV PRN (18:11)
[2020-10-29] MEDS ORDERED: HYDROmorphone INJ 1 MG/ML SYRINGE IV PRN (18:11)
[2020-10-29] MEDS ORDERED: LORazepam 0.5 MG/1 ML VIAL IV PRN (18:11)
[2020-10-29] MEDS ORDERED: bisacodyL 10 MG SUPP PR PRN (18:11)
[2020-10-29] MEDS ORDERED: diphenhydrAMINE Capsule 25 MG CAP PO PRN (18:11)
[2020-10-29] MEDS ORDERED: PROMETHAZINE HCL 12.5 MG in SODIUM CHLORIDE 0.9% 50 ML IV PRN (18:11)
[2020-10-29] MEDS ORDERED: hydrOXYzine HCl 25 MG TAB PO PRN (18:11)
[2020-10-29] MEDS ORDERED: SOD PHOSPHATE/SOD BIPHOSPHATE ENEMA 132 ML BTL PR PRN (18:11)
[2020-10-29] MEDS ORDERED: NALOXONE HCL 0.4 MG/1 ML VIAL/CARP IV PRN (18:11)
[2020-10-29] MEDS ORDERED: LORazepam 0.5 MG TAB PO PRN (18:11)
[2020-10-29] MEDS ORDERED: LACTATED RINGER'S 1,000 ML IV SCH (18:11)
[2020-10-29] MEDS ORDERED: MAGNESIUM HYDROXIDE SUSP 30 ML UDC PO PRN (18:11)
[2020-10-29] MEDS ORDERED: ONDANSETRON 4 MG OD TAB PO PRN (18:11)
[2020-10-29] MEDS ORDERED: ALUMINUM/MAGNESIUM SUSP 30 ML UDC PO PRN (18:11)
[2020-10-29] MEDS ORDERED: DO NOT ADMINISTER FLU VACCINE PRN (18:11)
[2020-10-29] MEDS ORDERED: oxyCODONE HCL IR 5 MG TAB (IMMEDIATE RELEASE) PO PRN (18:11)
[2020-10-29] MEDS ORDERED: HYDROmorphone INJ 0.5 MG/0.5 ML SYR IV PRN (18:11)
[2020-10-29] MEDS ORDERED: FAMOTIDINE 20 MG TAB PO PRN (18:11)
[2020-10-29] MEDS ORDERED: traMADol HCL 50 MG TABLET PO PRN (18:11)
[2020-10-29] MEDS ORDERED: METOCLOPRAMIDE HCL INJ 5 MG/ML 2 ML VIAL IV PRN (18:11)
[2020-10-29] MEDS ORDERED: DO NOT ADMINISTER PNEUMOCOCCAL VACCINE PRN (18:11)
--- NOTE | 2020-10-29 18:44 | Fluoroscopy Report ---
FL spine 1V any level CLINICAL HISTORY: L4-5 LAMINECTOMY COMPARISON STUDY: None. FLUOROSCOPY TIME: 7 seconds. FINDINGS: Single fluoroscopic spot image of the lower lumbar spine demonstrate surgical measurements posterior to the L4-5 disc space. IMPRESSION: Fluoroscopy provided for L4-5 laminectomy. ACT 112: Negative or not required by law. Electronically signed by: Wild Anderson M.D. 10/29/2020 6:42 PM
[2020-10-29] MEDS: LIDOCAINE 5% 1 PATCH TD SCH (20:14)
[2020-10-29] MEDS ORDERED: DOCUSATE SODIUM/SENNA 50/8.6MG TAB PO SCH (21:00)
[2020-10-29] MEDS: ceFAZolin 1000MG 1,000 MG/7.5 ML SYR IV SCH (22:56)
[2020-10-30] MEDS: POLYETHYLENE (MIRALAX) 17 GM PACK PO SCH ×2 (05:36→11:56)
[2020-10-30] MEDS: ACETAMINOPHEN 500 MG TAB PO PRN ×2 (05:38→13:15)
[2020-10-30 06:56] LABS: Hematocrit (blood only) 37.2 % (37-47); Mean Corpuscular Hemoglobin 31.2 pg (25-34); Mean Corpuscular Hgb Conc 32.3 g/dL (32-36); Mean Corpuscular Volume 96.6 fL (80-100); Mean Platelet Volume 9.6 fL (7.4-10.4); Platelet Count 269 K/uL (130-400); RDW Coefficient of Variation 13.1 % (11.5-14.5); RDW Standard Deviation 45.5 fL (36.4-46.3); Red Blood Count 3.85 M/uL (4.2-5.4); White Blood Count 12.08 K/uL (4.8-10.8)
[2020-10-30] MEDS: ceFAZolin 1000MG 1,000 MG/7.5 ML SYR IV SCH (08:09)
--- NOTE | 2020-10-30 08:20 | Orthopedic Progress Note ---
Date of Service October 30, 2020 Assessment & Plan (1) Lumbar radiculopathy: Plan: At this time she we will have her up and ambulating. She is okay for discharge from orthopedic standpoint. Admission and Anticipated Discharge Date Admission Date: October 29, 2020 Subjective Back pain controlled leg pain markedly improved Physical Exam Physical Exam: On exam patient appears much more comfortable. She does have persistent bilateral foot drop but no tension signs. Results & Data ([facility]) Vital Signs (Past 12 Hours) Vital Signs Temp Pulse Pulse Resp BP BP Pulse Ox 10/30/20 07:37 36.8 C 57 L 18 96/56 L 94 10/30/20 03:19 37.1 C 64 17 104/54 L 97 10/29/20 21:24 37.0 C 67 16 96/54 L 93
--- NOTE | 2020-10-30 13:29 | Discharge Summary ---
Date of Service October 30, 2020 Admission HPI Per Admitting Provider 65-year-old female with PMH Lmtjlva-Dansp-Iqynf and other problems listed below who presents the ED for evaluation of right hip pain. Patient reports right hip pain initially started about a year and a half ago. Reports pain radiates down the back of the right leg. Pain has been progressively getting worse. Initially patient was able to obtain pain control with Tylenol, Motrin, Aleve, or pain relief patches. Currently wuri-lwh-[id number] therapies are not improving her pain. She has been seen PT for the past couple of weeks with minimal improvement. Patient then presented to the ED for further evaluation. 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 Denies right leg weakness. Also has chronic neuropathy which is unchanged from baseline. Patient denies loss of bowel or bladder control. Reports she otherwise has been feeling well recently. No other recent illnesses, fevers, chills. She denies chest pain shortness of breath. No lightheadedness, dizziness, diaphoresis, syncopal events. Denies abdominal pain, nausea, vomiting, diarrhea. No new urinary symptoms. In the ED, lumbar spine MRI shows a 13 x 9 x 9 mm right paracentral disc extrusion at L4-L5 which compresses the transiting right L5 nerve root. Patient received ibuprofen, IV morphine 2 mg, Percocet. She continues to have intractable pain. Admission Exam Per Admitting Provider General- No acute distress Head- atraumatic Eyes- PERRL, EOMI, ENT- oropharynx clear Neck- supple, no JVD Lungs- clear to auscultation Heart- regular rhythm; no murmur Abdomen- normal bowel sounds, soft, nontender Extremities- no calf tenderness, right sided hip tenderness Neuro- alert, oriented x 3; PERRL, EOMI; no facial palsy; no dysarthria Skin- warm & dry Principal Diagnosis Lumbar disc condition L4-5 with radiculopathy Charcot Nichelle Tooth muscular atrophy Discharge Exam General- No acute distress Head- atraumatic Eyes- PERRL, EOMI, ENT- oropharynx clear Neck- supple, no JVD Lungs- clear to auscultation Heart- regular rhythm; no murmur Abdomen- normal bowel sounds, soft, nontender Extremities- no calf tenderness, right sided hip tenderness Neuro- alert, oriented x 3; PERRL, EOMI; no facial palsy; no dysarthria Skin- warm & dry Discharge Data Allergies Allergy/AdvReac Type Severity Reaction Status Date / Time Penicillins AdvReac Mild Rash Unverified 10/26/20 17:10 Consultations 10/26/20 20:05 ED Decision to Admit Stat 10/26/20 22:45 Consult Orthopedic Surgery Routine Procedures Performed Operation Date: 10/29/20 08:50 Actual Procedures p L4-5 Right Laminectomy(Right) - Ho Caldera DO Ordered Studies 10/26/20 13:28 MR lumbar spine wo con Stat 10/29/20 14:00 FL spine 1V any level Routine [facility], [id number] Fluoroscopy Report Patient: Juanito NUNO Date: 10/29/20#: [id number]: [id number]AYcct ID:[id number]: Date: 1955[facility] Zip: [place], [place] [address]Jkn: 65Location: 3WSex: FRoom/Bed: [address] Phy: Randolph Adam M.D.Diagnosis: BACK PAIN, COVID NEG PER LABPri Phy: Jonathan Majano MDService Date: 10/29/20Fa Phy:Interpreting Phy: Wild Anderson MDAdmit Phy: Claudio Stewart MD Ordering Phy: Ho Caldera,D.O. cc: ~ FL spine 1V any level CLINICAL HISTORY: L4-5 LAMINECTOMY COMPARISON STUDY: None. FLUOROSCOPY TIME: 7 seconds. FINDINGS: Single fluoroscopic spot image of the lower lumbar spine demonstrate surgical measurements posterior to the L4-5 disc space. IMPRESSION: Fluoroscopy provided for L4-5 laminectomy. ACT 112: Negative or not required by law. Electronically signed by: Wild Anderson M.D. 10/29/2020 6:42 PM Dictated: 10/29/201841Transcribed: 10/29/201841 LUMBAR SPINE MRI HISTORY: severe low back pain down R leg TECHNIQUE: Multiplanar multisequence MRI of the lumbar spine was performed without the use of contrast. COMPARISON: None. FINDINGS: For the purpose of the report the L5-S1 disc space will be located on axial image 23 of 25. Mild motion artifact. Mild dextroscoliosis. Moderate disc space narrowing at L1- L2 and L5-S1. Mild disc space narrowing at L2-L3, L3-L4, and L4-5. Tfay-wb-qmxjbdhe facet degenerative changes seen throughout the lumbar spine. No fracture or subluxation. The conus terminates at the L1 level. L1-L2: Broad-based posterior disc bulge with a small focal central disc protrusion. No significant central canal narrowing. There is mild to moderate bilateral neural foraminal narrowing due to the disc bulge and facet hypertrophy. L2-L3: Broad-based posterior disc bulge asymmetric to the left with ligamentum and facet hypertrophy resulting in mild central canal narrowing. There is also moderate right and severe left neural foraminal narrowing L3-L4: Broad-based posterior disc bulge with ligamentum and facet hypertrophy resulting in mild central canal narrowing. No significant neural foraminal narrowing. L4-L5: Broad-based posterior disc bulge with a right paracentral disc extrusion demonstrating inferior subligamentous migration. This measures 13 x 9 x 9 mm and compresses the transiting right L5 nerve root. There is moderate bilateral neural foraminal narrowing due to the disc bulge. There is mild to moderate central canal narrowing. L5-S1: Small broad-based posterior disc bulge without significant central canal narrowing. There is mild to moderate bilateral neural foraminal narrowing due to the disc bulge and facet hypertrophy. IMPRESSION: 1. A 13 x 9 x 9 mm right paracentral disc extrusion at L4-L5 which compresses the transiting right L5 nerve root. 2. Additional degenerative changes as described above within the lumbar spine resulting in central canal and neural foraminal narrowing. 3. No fracture or subluxation. 4. Mild dextroscoliosis. ACT 112: Negative or not required by law. Electronically signed by: Wild Anderson M.D. 10/26/2020 3:44 PM Dictated: 10/26/201537Transcribed: 10/26/201537 Hospital Course (1) Lumbar radiculopathy: (2) Hip pain, right: Present on admission with worsening right hip pain MRI showed a 13 x 9 x 9 mm right paracentral disc extrusion at L4-L5 which compresses the transiting right L5 nerve root. ortho on board S/P lumbar laminectomy L4-L5 on the right with excision of herniated free fragment by Dr. Caldera on 10/29 No post op complication On control with diluadid and toradol Pt said that her pain is well control now after the procedure and has not been t aking any narcotic since then Continue incentive spirometry PT/OT as per ortho Continue monitor closely Ok from ortho standpoint to discharge home Charcot Nichelle Tooth muscular atrophy Continue pain control DVT px on SCD Full code Total Time Total Time Spent Total Time Spent (In Minutes): 35 minutes Discharge Plan Discharge Items Patient Disposition: Home - Self-Care Reason For Visit: BACK PAIN, COVID NEG PER LAB Discharge Diagnosis: Lumbar disc condition L4-5 with radiculopathy Activity: As commented below Non-emergency contact: Primary Care Provider Call non-emergency contact if: you have any medication questions Follow-up/Referrals: Ho Caldera DO [Surgeon] - 11/13/20 3:00 pm Jonathan Majano MD [Primary Care Provider] - 11/07/20 3:00 pm (Date & Time 11/07/2020 3:00 PM Provider Jonathan Majano MD Department Family [facility] ) Diet: Regular Addtl Attending Provider Instructions: ACTIVITY RECOMMENDATIONS: SELF CARE INSTRUCTIONS AFTER A LAMINECTOMY 1. No prolonged sitting (less than 30 minutes for the first 3 weeks after surgery). 2. No bending, lifting more than 5 pounds, or twisting (roll like a log when turning in bed). 3. You may shower 3 days after surgery if no drainage from wound. Thoroughly dry wound. Do not soak in the tub. 4. Please walk as much as you can for exercise. Gradually increase the distance that you walk as your endurance increases. 5. You may drive in 7-10 days if you are comfortable and no longer requiring pain medications. SPECIAL CARE INSTRUCTIONS: VERY IMPORTANT TO READ AND REVIEW A. Your surgical incision has been closed with a cosmetic suture under the skin that will dissolve in about 6 weeks. In 14 days, you can use a pair of clean scissors and cut the suture that is left outside of the skin at the ends of your incision. B. Complications are uncommon, but please contact us if you have any signs or symptoms of: 1. wound infection (fever higher than 102.5 degrees F, redness, separation of wound, drainage, or increasing pain from the incision) 2. blood clots in legs (pain, swelling, redness and warmth in legs) 3. urinary tract infection (fever higher than 102.5 degrees, burning upon urination or increased frequency of urination) 4. nerve problems (inability to walk on your toes or heels, numbness, loss of bowel or bladder control) 5. any other symptoms that concern you. C. Please call the office at if you have any concerns or q uestions about your operation or recovery. MANAGING PAIN AFTER SPINAL SURGERY 1. Narcotic medication is intended for short-term use and will be provided for surgical pain. Surgical pain usually lasts for a period of 4-6 weeks. Narcotic medication includes Percocet, Vicodin, Darvocet, Tylenol #3 or Lortab. 2. Longer-term pain is more appropriately treated with non-narcotic medication such as Tylenol ES. 3. Muscle spasm is not appropriately treated with narcotics. Muscle relaxers such as Soma, Flexeril or Skelaxin can be used along with Tylenol ES. 4. Remember that we all live with some "aches and pains". This is not unusual or uncommon after an injury or as we get older. 5. We will provide appropriate medication within the normal guidelines of their prescribed use. We will also be very cautious and aware of potential abuse and extended duration of patients' medication needs. 6. Please allow 2-3 days to process refills. Prescriptions will not be mailed but must be picked up at the office. FOLLOW UP VISIT: Keep your scheduled follow-up appointment. Any questions, please call the office at . Pending Studies at Discharge: No Stand-Alone Forms: My [facility], Opioid Pain Management, Smoking Cessation Medications and DC Order Prescriptions: New oxycodone 5 mg tablet 5 mg PO Q6H PRN (Reason: pain, severe) Qty: 20 RF: 0 tramadol 50 mg tablet 50 mg PO Q6H PRN (Reason: pain, moderate) Qty: 20 RF: 0 Continued cyclobenzaprine 10 mg tablet 10 mg PO BID RF: 0 acetaminophen 650 mg Tablet Extended Release 1,300 mg PO Q12H PRN (Reason: Pain) RF: 0 naproxen sodium [Aleve] 220 mg Tablet 220 mg PO Q12H PRN (Reason: Pain) RF: 0 Advil Dual Action 125-250 mg Tablet 1 tab PO TID PRN (Reason: Pain) RF: 0 Discharge Orders: Discharge Order (Routine); Ordered 10/30/20 Ordered By: Ho Ramírez/Other Patient Handouts: Discharge Instructions for Laminectomy Admission Data Admit Date/Time: 10/29/20 10:44 Attending Provider: Randolph Adam Admit Provider: Claudio Stewart Primary Care Provider: Jonathan Majano Other Providers: Jessi Pettit ; Claudio Stewart ; Ho Caldera Other Interventions: Discharge Summary Assessment (RN) Last Done: 10/30/20 11:40
== END 2020-10-30 14:30 | disposition home or self-care (01) | DRG 520 ==
LOC: ED 11:58 → 3W 11:58 → SUATTDRO 22:44 → 3W 10-27 00:17
DX: M51.16 Intervertebral disc disorders with radiculopathy, lumbar region; M25.551 Pain in right hip; M21.372 Foot drop, left foot; Z88.0 Allergy status to penicillin; Z87.891 Personal history of nicotine dependence; G60.0 Hereditary motor and sensory neuropathy; M21.371 Foot drop, right foot